=== PATIENT | female | born 1960 | race Two or more races ===

== ENCOUNTER → 2020-05-16 | Outpatient (CLI) | payer OTHER | END | disposition home or self-care (01) | LOC: LAB 14:41 → LAB SHORT 14:41 | DX: Z20.828 Contact with and (suspected) exposure to other viral communicable diseases (principal) | CPT/HCPCS: U0003 ==

== ENCOUNTER 2022-02-17 11:41 | Emergency (ER) | payer OTHER ==
[~2022-02-17] VITALS: Ht 165.1 cm; Wt 111.1 kg
== END 2022-02-17 12:57 | disposition home or self-care (01) ==
LOC: ER 11:41
DX: S60.221A Contusion of right hand, initial encounter (principal); S60.00XA Contusion of unspecified finger without damage to nail, initial encounter; W23.0XXA Caught, crushed, jammed, or pinched between moving objects, initial encounter
CPT/HCPCS: 73130

== ENCOUNTER → 2024-03-06 | Outpatient (CLI) | payer OTHER | LOC: LAB 07:37 → LAB SHORT 07:37 | DX: L57.0 Actinic keratosis (principal) | CPT/HCPCS: 88305 ==

== ENCOUNTER 2024-04-23 13:23 | Day surgery (SDC) | payer OTHER ==
[~2024-04-23] VITALS: Ht 165.1 cm; Wt 109.9 kg
[~2024-04-23 13:23] MED LIST: Atropine Sulfate 0.1 MG/ML 10ML SYR ONE; Glycopyrrolate 0.2 MG/ML 1MLVIAL ONE; Lidocaine 2% 5 ML SDV ONE; Lidocaine HCl/Pf 1% 5 ML VIAL ONE; Methylene Blue 1% 100 MG/10 ML VIAL ONE; Ondansetron HCl 2 MG / ML 2ML Vial ONE; ePHEDrine Sulfate 50 MG/ML 1ML Injection ONE
[2024-04-23] MEDS ORDERED: LOSA25 PO (13:50)
[2024-04-23] MEDS ORDERED: ESCI20 PO (13:50)
[2024-04-23] MEDS ORDERED: HYDHCL25 PO (13:50)
[2024-04-23] MEDS ORDERED: STEGLATRO5 MG PO (13:50)
[2024-04-23] MEDS ORDERED: VERA80 PO (13:51)
[2024-04-23] MEDS ORDERED: METO100ER PO (13:51)
[2024-04-23] MEDS ORDERED: IRBESARTAN300 M1 PO (13:53)
[2024-04-23] MEDS ORDERED: ROPINIROLE HC0.25 M2 PO (13:53)
[2024-04-23] MEDS ORDERED: Iron Chews15 MG (13:54)
[2024-04-23] MEDS ORDERED: Aspir 8181 MG PO (13:54)
[2024-04-23] MEDS ORDERED: Cyclobenzaprine5 MG PO (13:54)
[2024-04-23] MEDS ORDERED: Lovastatin20 MG PO (13:54)
[2024-04-23] MEDS ORDERED: CINNAMON EXTRA500 MG PO (13:55)
[2024-04-23] MEDS ORDERED: MELA3 PO (13:55)
[2024-04-23] MEDS ORDERED: STOOL SOFTNER (13:56)
[2024-04-23] MEDS ORDERED: ENEMA (13:56)
[2024-04-23] MEDS ORDERED: IBU800 MG PO (13:56)
[2024-04-23] MEDS ORDERED: Lactated Ringer's 1,000 ML IV ONE (14:34)
[2024-04-23] MEDS ORDERED: propofoL 50 ML IV ONE (14:52)
[2024-04-23 15:46] VITALS: BP 121/74
== END 2024-04-23 16:01 | disposition home or self-care (01) ==
LOC: ORSCSDS 13:23
PROVIDERS: Specialist
PROC: 0DB88ZX Excision of Small Intestine, Via Natural or Artificial Opening Endoscopic, Diagnostic (ICD-10-PCS; principal; 2024-04-23 15:00)
PROC: 0DJD8ZZ Inspection of Lower Intestinal Tract, Via Natural or Artificial Opening Endoscopic (ICD-10-PCS; principal; 2024-04-23 15:00)
DX: D50.9 Iron deficiency anemia, unspecified (principal); Z98.84 Bariatric surgery status; K62.5 Hemorrhage of anus and rectum; K64.8 Other hemorrhoids; K57.30 Diverticulosis of large intestine without perforation or abscess without bleeding; K63.89 Other specified diseases of intestine; I10 Essential (primary) hypertension; K21.9 Gastro-esophageal reflux disease without esophagitis; E11.9 Type 2 diabetes mellitus without complications; E78.5 Hyperlipidemia, unspecified; Z79.899 Other long term (current) drug therapy
CPT/HCPCS: 82947; 88305; J0461; J2003; J2405; J2704; Q9968

== ENCOUNTER 2025-03-23 19:36 | Emergency (ER) | payer OTHER ==
[~2025-03-23] VITALS: Ht 165.1 cm; Wt 112.0 kg
[~2025-03-23 19:36] MED LIST changes: +Aspir 8181 MG PO; -Atropine Sulfate 0.1 MG/ML 10ML SYR ONE; +CINNAMON EXTRA500 MG PO; +Cyclobenzaprine5 MG PO; +ENEMA; +ESCI20 PO; -Glycopyrrolate 0.2 MG/ML 1MLVIAL ONE; +HYDHCL25 PO; +IBU800 MG PO; +IRBESARTAN300 M1 PO; +Iron Chews15 MG; +LOSA25 PO; -Lidocaine 2% 5 ML SDV ONE; -Lidocaine HCl/Pf 1% 5 ML VIAL ONE; +Lovastatin20 MG PO; +MELA3 PO; +METO100ER PO; -Methylene Blue 1% 100 MG/10 ML VIAL ONE; -Ondansetron HCl 2 MG / ML 2ML Vial ONE; +ROPINIROLE HC0.25 M2 PO; +STEGLATRO5 MG PO; +STOOL SOFTNER; +VERA80 PO; -ePHEDrine Sulfate 50 MG/ML 1ML Injection ONE
[2025-03-23 20:58] VITALS: BP 144/62
[2025-03-23] MEDS ORDERED: Voltaren100 GM TOP (21:05)
[2025-03-23] MEDS ORDERED: Cyclobenzaprine5 MG PO (21:05)
== END 2025-03-23 21:08 | disposition home or self-care (01) ==
LOC: ER 19:36
DX: S39.012A Strain of muscle, fascia and tendon of lower back, initial encounter (principal); W18.30XA Fall on same level, unspecified, initial encounter; Z88.8 Allergy status to other drugs, medicaments and biological substances; Z79.82 Long term (current) use of aspirin; Z79.899 Other long term (current) drug therapy
CPT/HCPCS: 99283

== ENCOUNTER 2025-05-28 13:46 | Emergency (ER) | payer OTHER ==
[~2025-05-28] VITALS: Ht 165.1 cm; Wt 108.9 kg
[~2025-05-28 13:46] MED LIST changes: +Voltaren100 GM TOP
[2025-05-28] MEDS ORDERED: NS 1,000 ML IV SCH (14:25)
[2025-05-28 14:43] LABS: BASOPHILS ABSOLUTE AUTO 0.03 K/mm3 (0.00-0.23); BASOPHILS PERCENT AUTO 0 % (0-2); EOSINOPHILS ABSOLUTE AUTO 0.24 K/mm3 (0.00-0.68); EOSINOPHILS PERCENT AUTO 3 % (0-6); Hematocrit 43.3 % (33.0-51.0); Hemoglobin 14.4 g/dL (11.5-16.0); IMMATURE GRAN ABSOLUTE AUTO 0.09 K/mm3 (0.00-0.10); IMMATURE GRAN PERCENT AUTO 1 % (0-1); LYMPHOCYTES ABSOLUTE AUTO 2.61 K/mm3 (0.84-5.20); LYMPHOCYTES PERCENT AUTO 27 % (21-46); MONOCYTES ABSOLUTE AUTO 0.85 K/mm3 (0.16-1.47); MONOCYTES PERCENT AUTO 9 % (4-13); Mean Corpuscular HGB Conc 33.3 g/dL (31.5-36.5); Mean Corpuscular Volume 88 fL (80-100); NEUTROPHILS ABSOLUTE AUTO 5.97 K/mm3 (1.96-9.15); NEUTROPHILS PERCENT AUTO 61 % (41-73); NRBC ABSOLUTE 0.00 K/mm3 (0.00-0.02); NRBC Auto 0.0 /100 WBC (0.0-0.2); Platelet Count 316 K/mm3 (150-400); RDW Coefficient Variation 13.8 % (11.7-14.2); RDW Standard Deviation 44.6 fL (35.1-46.3)
[2025-05-28 15:08] LABS: Alanine Aminotransfer (ALT/SGP 35.0 U/L (12-78); Albumin, Blood 3.5 g/dL (3.4-5.0); Albumin/Globulin Ratio 1.0 (0.8-1.8); Anion Gap 7.0 mmol/L (3-11); Aspartate Aminotrans (AST/SGOT 29.0 U/L (12-37); Bilirubin, Total 0.5 mg/dL (0.1-1.0); Blood Urea Nitrogen 10.0 mg/dL (8-24); CO2, Blood 24.0 mmol/L (21-32); Calcium, Blood 8.5 mg/dL (8.5-10.1); Chloride, Blood 113.0 mmol/L (98-108); Creatinine, Blood 0.68 mg/dL (0.40-1.00); Globulin, Blood 3.5 g/dL (2.2-4.0); Glucose, Blood 142.0 mg/dL (70-99); Potassium, Blood 3.7 mmol/L (3.5-5.5); Sodium, Blood 140.0 mmol/L (136-145); Total Protein, Blood 7.0 g/dL (6.4-8.2)
[2025-05-28] MEDS ORDERED: Diltiazem HCl 5 MG / ML 5ML Vial IV ONE (18:10)
[2025-05-28 18:52] LABS: Magnesium, Blood 1.8 mg/dL (1.6-2.4); Thyroid Stimulating Hormone 2.82 uIU/mL (0.360-4.800)
[2025-05-28 20:08] VITALS: BP 187/111
[2025-05-28] MEDS ORDERED: XARELTO20 MG PO (21:18)
== END 2025-05-28 21:44 | disposition home or self-care (01) ==
LOC: ER 13:46
PROVIDERS: Emergency Medicine
DX: I48.91 Unspecified atrial fibrillation (principal)
CPT/HCPCS: 71045; 74177; 80053; 83735; 83880; 84443; 84484; 85025; 93005; 93010; 96361; 96374-59; 99285-25; A9270; J7030; Q9967